=== PATIENT | male | born 1930 | race Caucasian/White ===

== ENCOUNTER 2016-05-16 11:57 | Inpatient (IN) | payer OTHER ==
[~2016-05-16] VITALS: Ht 177.8 cm; Wt 81.6 kg
--- NOTE | ~2016-05-16 | EKG ---
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
--- NOTE | ~2016-05-16 | HC ---
[facility] [place] [address] CONSULTATION Name: CASSIDY CASTRO Room #: 437-P [facility] IN ..#: [id number] Admission: 05/16/16 Attend Phys: Alin Ugalde MD Discharge: Date of : [birth year] Report #: [id number] THIS REPORT FOR: //name// CC: Alin Ugalde DATE OF SERVICE: 05/16/2016 ATTENDING PHYSICIAN: Alin Ugalde MD REASON FOR CONSULTATION: Right-sided L4-L5 zoster. HISTORY OF PRESENT ILLNESS: The patient is an 86-year-old white man who a week ago from today developed right gluteal and thigh pain; subsequently, there were blisters. He visited with Dr. Ugalde. Famvir 500 p.o. t.i.d. prescribed. The patient developed side effects, liquid stool, diarrhea, possibly related to this. He has changed to Valtrex and he experienced hiccups from these. On account of the side effect from the above medications, he is admitted and we started the patient on acyclovir. The patient has ongoing zoster for approximately 6-7 days now. He is not toxic, not distressed, no significant pain. Relates that in the 50s may had another episode of zoster. 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 DRUG ALLERGIES: LEVAQUIN (itching). CURRENT MEDICATIONS: The patient is on treatment with cyanocobalamin 100 mcg p.o. daily, loperamide 2 mg p.o. daily, magnesium chloride 64 mg daily, tamsulosin 0.4 mg daily, metoprolol 50 mg daily, methylprednisolone 40 mg IV daily, gabapentin 100 mg at bedtime, eyedrops, loperamide 2 mg q.i.d. p.r.n., hydrocodone 0.5-1 mg q. 4 hours p.r.n., acyclovir ____ mg b.i.d. SOCIAL HISTORY: See H and P, old records. FAMILY HISTORY: See H and P, old records. REVIEW OF SYSTEMS: As above and see H and P. PHYSICAL EXAMINATION: GENERAL: Well-developed man, not toxic looking, no distress. VITAL SIGNS: Temperature 97.8, pulse 73, respirations 20, BP 143/70. The patient is on room air saturation within range. HEENMT: Head normocephalic and atraumatic. Pupils reactive. Mouth: [place] [address] CONSULTATION Name: CASSIDY CASTRO Room #: [address] [place] [address] IN ..#: [id number] Admission: 05/16/16 Attend Phys: Alin Ugalde MD Discharge: Date of : [birth year] Report #: [id number] thrush. NECK: Supple. No thyromegaly. LUNGS: Clear to auscultation. HEART: S1, S2. No gallop or murmur. ABDOMEN: Soft. No masses or megaly. GENITOURINARY: Deferred. RECTAL: Deferred. EXTREMITIES: Reveal typical lesions of zoster on the right gluteal area, medial aspect right side and leg with ____ blisters on the right leg. NEUROLOGIC: Grossly within normal limits. LABORATORY DATA: Revealed the following abnormals: Potassium 3.4 mEq/L, BUN 28 mg/dL, creatinine 1.6 ng/dL on the date of admission, albumin 3.3 g/dL, protime 26.1, INR 2.5, hemoglobin 11.6 g/dL and platelets 146,000. ASSESSMENT: 1. Right-sided L5-S1 zoster. 2. Acute kidney injury, improved. 3. 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 4. Atrial fibrillation, on chronic anticoagulation. SUGGESTIONS: Recommend intravenous fluids, steroid supplementation with stress dose and acyclovir 10 mg/kg IV every 12 hours should be appropriate for patient's degree of renal insufficiency. Dr. Ugalde, thank you for requesting my suggestions in the care of your patient and I will continue to follow him along with you. <ELECTRONICALLY SIGNED> By: Jared Garces MD 05/18/16 1104 [id number] Jared Garces MD /nt
--- NOTE | ~2016-05-16 | H ---
[facility] [place] [address] HISTORY AND PHYSICAL Name: CASSIDY CASTRO Room #: 437-P [facility] IN .R.#: [id number] Admission: 05/16/16 Attend Phys: Alin Ugalde MD Discharge: Date of : [birth year] Report #: [id number] THIS REPORT FOR: //name// CC: Alin Ugalde DATE OF SERVICE: 05/16/2016 CHIEF COMPLAINT: Hiccups, diarrhea, bad stomach combined with shingles medication. HISTORY OF PRESENT ILLNESS: The patient came to my office on 05/08/2016 with acute leg pain with some features of an early preeruptive herpetic zoster. He was given famciclovir 500 mg 3 times a day. He returned to the office 4 days later with a full scale eruption in the posterior buttock area and down the medial portion of his right leg in the L5-S1 distribution. He also reported liquid stools from taking the famciclovir, and he was only able to tolerate 1 of the 500 mg tablet a day at that time. He was switched to valacyclovir and initially did well, but then came back to the office yesterday complaining of some hiccups with the valacyclovir. His shingles was progressing. This morning he called with the intractable hiccups anytime he would take the valacyclovir and was not doing well otherwise, so admission was arranged. He had been taking prednisone as well. He did not need to take hydrocodone because his pain had become much less severe. He had been taking 200 mg of gabapentin at bedtime without difficulty. The patient was hospitalized for 3 days 04/28/2014 because of nausea, vomiting, and diarrhea. Acute renal failure and low blood pressure in the office qualified for shock at that time, and his gastroesophageal reflux symptoms improved to some degree with the administration of sucralfate. He had a past history of hiatal hernia and peptic ulcer disease as well as proton pump inhibitors being the cause of an episode of severe hypokalemia and hypomagnesemia for which he was hospitalized several weeks in March 2014 at an outside hospital. He was followed at the [facility] for paroxysmal atrial fibrillation by Dr. Prabhu Rabago. He also has hyperlipidemia, dyslipidemia, and coronary artery disease. He is maintained on warfarin under Dr. Rabago' direction. He is followed by Dr. Jaden Lopez for shortness of breath. A sleep study was performed on 12/08/2015 with the finding of central sleep apnea, obstructive hypopneas, and nocturnal hypoxemia. CPAP/BiPAP, [place] [id number] HISTORY AND PHYSICAL Name: CASSIDY CASTRO Room #: 437-P [facility] IN ..#: [id number] Admission: 05/16/16 Attend Phys: Alin Ugalde MD Discharge: Date of : [birth year] Report #: [id number] Radiation enteritis from prostate cancer treatment started 7 years ago that is ordinarily well controlled with 1 Imodium tablet taken every morning. Hypertension, history of gout, hiatal hernia, peptic ulcer disease, chronic kidney disease stage 3. ALLERGIES: PROTON PUMP INHIBITORS, LEVOFLOXACIN CAUSED ITCHING. CURRENT MEDICATIONS: Loperamide 2 mg 1 in the morning, baby aspirin 1 daily, furosemide 20 mg daily for swelling, metoprolol succinate 50 mg 1 twice daily for his paroxysmal atrial fibrillation, nitroglycerin tablets have not been needed, rosuvastatin 10 mg once daily was recently changed to atorvastatin 40 mg daily, Slow-Mag 14 mg once daily, he is not taking tamsulosin, warfarin 1 mg and 2 mg tablets, he is taking 19 mg per week under the direction of Dr. Rabago. He takes an Gissell-Newfolden tablet as needed for heartburn at night, B12 1000 mcg daily, Refresh eye drops twice daily in each eye, oxygen 2 liters at night and cardio tablets, multiple vitamin during the day. SOCIAL HISTORY: He does drink apparently according to his family. He is a nonsmoker. His of many years last year and he is home alone. He has a family that do not live too far away from here. He lives independently in an [facility]. REVIEW OF SYSTEMS: Negative except for the belching experienced over the last 48 hours related to valacyclovir, extremely loose stools experienced last week in response to famciclovir and the pain from his right upper buttocks down his medial right leg from acute zoster. He also has suffered balanitis in the last week and a half that has responded to topical preparations. An appointment was made last week for him to be seen by Dr. Ruy Duval on Sunday, May 17, for consideration for an epidural injection to definitively treat his acute zoster. His last dose of warfarin was to have been on May 11 in order to abnormal clotting studies prior to an epidural on May 17. He insists that he did stop taking is warfarin like he was instructed to do. However, his INR today in the hospital is therapeutic at 2.5, as if he never stopped taking the warfarin. PHYSICAL EXAMINATION: GENERAL: Shows an 86-year-old man who was mildly ill. HEENT: Oropharynx is only minimal dry. NECK: Negative. LUNGS: Clear. CARDIOVASCULAR: Heart tones are slightly rapid and irregularly irregular. There is a soft systolic murmur present. ABDOMEN: Soft, nontender, without hepatosplenomegaly or masses. EXTREMITIES: There are dried, crusted lesions on the right buttock area, as well as active fluid-filled vesicles in the distal medial right leg from the [facility] [address] [place] [address] HISTORY AND PHYSICAL Name: CASSIDY CASTRO Room #: 437-P [facility] IN .R.#: [id number] Admission: 05/16/16 Attend Phys: Alin Ugalde MD Discharge: Date of : [birth year] Report #: [id number] dermatomal distribution of this acute shingles episode. There are no focal neurological deficits. Once he arrived on the telemetry unit, he did develop rapid atrial fibrillation at 135. He was given his dose of Toprol XL early to treat this. ASSESSMENT: 1. Acute herpes zoster L4, L5, S1 distribution on the right. 2. He was intolerant initially of famciclovir and now intolerant of valacyclovir. 3. He is mildly dehydrated from diarrhea and belching and not being able to eat or drink well. 4. He does have an acute herpetic neuropathic pain. 5. Paroxysmal atrial fibrillation -- previous facsimile machine operator note that he is in normal sinus rhythm most of the time, but the stress of his illness has escaped to an atrial fibrillation rhythm. 6. Measurements show adequate anticoagulation, although the patient himself says that he has not had warfarin since 05/11/2016. This is possible; however, he would have to have a very little exogenous vitamin K for his body to produce blood clotting factors to keep his INR therapeutic this long without having taken any medication. 7. Proton pump inhibitors caused tremendous diarrhea and loss of electrolytes at an outside hospital a year ago. 8. Other medical problems as mentioned in history and physical. PLAN: He has been giving his home medications, except his warfarin is being held. Pro time will be repeated. Intravenous fluids with potassium will be given. He has been seen in infectious disease consultation by Dr. Jared Garces, and intravenous acyclovir in the appropriate dose has been started for his shingles. Corticosteroid therapy will be continued. Gabapentin at bedtime. He is not "entirely ready to go," but he does not want prolonged resuscitation efforts, so he chose a "[id number]" level of resuscitation. Since he has liquid-filled vesicles on his distal right leg, contact isolation is appropriate at this time. By: [id number] Alin Ugalde MD /nt
[~2016-05-16 11:57] MED LIST: ADULT LOW DOSE81 MG PO; CALCIUM CITRAT1 EA14 PO; CARAFATE 11 GM/10 M1 PO; COUMADIN 1MG TAB1 M1 PO; COUMADIN 2 MG TA2 M1 PO; CRESTOR10 MG PO; FLOMAX0.4 MG PO; LOPERAMIDE 2 MG2 M1 PO; NITROGLYCERIN0.4 MG SUBLING; NORVASC10 MG PO; POTASSIUM 25 M25 MEQ PO; SLOW-MAG64 M1 PO; TOPROL XL100 MG PO; VITAMIN B-1100 M1 PO; VITAMIN B-12500 MCG SUBLING; VITAMIN D 5050000 I1 PO
[2016-05-16 14:10] LABS: HEMOGLOBIN 11.6 gm/dL (14.0-18.0); MCH 31.3 pg (26.0-34.0); MCV 94.8 fL (80.0-100.0); PLATELET COUNT 146 thou/uL (150-400); RBC 3.69 mil/uL (4.50-6.00); WBC 7.7 thou/uL (4.0-11.0)
[2016-05-16] MEDS ORDERED: SLOW-MAG64 M1 PO (14:10)
[2016-05-16 14:11] LABS: MANUAL DIFF YES
[2016-05-16] MEDS ORDERED: ALKA-SELTZER H1 EACH PO (14:17)
[2016-05-16] MEDS ORDERED: REFRESH CLASSI1 EACH OP (14:18)
[2016-05-16] MEDS ORDERED: LASIX 20 MG TAB20 MG PO (14:18)
[2016-05-16] MEDS ORDERED: CENTRUM SILVER1 EAC4 PO (14:18)
[2016-05-16 14:21] LABS: ALBUMIN 3.3 g/dL (3.4-5.0); CALCIUM 8.5 mg/dL (8.5-10.1); CREATININE 1.6 mg/dL (0.6-1.3); POTASSIUM 3.4 mmol/L (3.5-5.1); TOTAL BILIRUBIN 0.7 mg/dL (<0.1-1.0)
[2016-05-16 14:26] LABS: ABSOLUTE NEUTROPHILS 5.7 thou/uL (1.4-8.2); ANISOCYTOSIS SLIGHT; NUCLEATED RBCS 1 /100WBC; PLATELET ESTIMATE SLIGHTLY DECREASED; TOTAL CELL COUNT 100
[2016-05-16 16:08] LABS: INR 2.5; PROTIME 26.1 Seconds (9.3-11.4)
[2016-05-17 06:49] LABS: HEMATOCRIT 32.3 % (42.0-52.0); HEMOGLOBIN 10.8 gm/dL (14.0-18.0); MCH 31.7 pg (26.0-34.0); MCHC 33.4 g/dL (28.0-37.0); MCV 94.9 fL (80.0-100.0); PLATELET COUNT 144 thou/uL (150-400); RDW 16.1 % (10.5-14.5); WBC 7.9 thou/uL (4.0-11.0)
[2016-05-17 06:52] LABS: MANUAL DIFF YES
[2016-05-17 07:08] LABS: ALBUMIN 2.8 g/dL (3.4-5.0); CALCIUM 8.2 mg/dL (8.5-10.1); CREATININE 1.3 mg/dL (0.6-1.3); MAGNESIUM 1.8 mg/dL (1.8-2.4); TOTAL BILIRUBIN 0.9 mg/dL (<0.1-1.0); TOTAL PROTEIN 6.2 g/dL (6.4-8.2)
[2016-05-17 07:23] LABS: ANISOCYTOSIS 1+; TOTAL CELL COUNT 100
[2016-05-17 08:58] LABS: INR 1.7; PROTIME 18.1 Seconds (9.3-11.4)
[2016-05-18 06:19] LABS: CALCIUM 8.5 mg/dL (8.5-10.1); CREATININE 1.4 mg/dL (0.6-1.3); POTASSIUM 4.6 mmol/L (3.5-5.1)
[2016-05-18 08:52] LABS: INR 1.5
[2016-05-19] MEDS ORDERED: PREDNISONE 10 M10 MG PO (12:51)
[2016-05-19] MEDS ORDERED: GABAPENTIN 100100 MG PO (12:51)
== END 2016-05-19 13:58 | disposition home or self-care (01) | DRG 595 ==
LOC: 4S 11:57
PROVIDERS: Internal Medicine
DX: B02.9 Zoster without complications (principal); G92 Toxic encephalopathy; N17.9 Acute kidney failure, unspecified; I48.0 Paroxysmal atrial fibrillation; E78.5 Hyperlipidemia, unspecified; G47.33 Obstructive sleep apnea (adult) (pediatric); I10 Essential (primary) hypertension; M10.9 Gout, unspecified; I25.10 Atherosclerotic heart disease of native coronary artery without angina pectoris; Z60.2 Problems related to living alone; E86.9 Volume depletion, unspecified; Z79.82 Long term (current) use of aspirin; Z79.01 Long term (current) use of anticoagulants; Z85.46 Personal history of malignant neoplasm of prostate; Z87.11 Personal history of peptic ulcer disease; Z88.1 Allergy status to other antibiotic agents; Z79.899 Other long term (current) drug therapy
CPT/HCPCS: 10100

== ENCOUNTER → 2016-06-21 | Outpatient (CLI) | payer OTHER ==
[~2016-06-21] VITALS: Ht 180.3 cm; Wt 78.5 kg
[~2016-06-21] MED LIST changes: +ALKA-SELTZER H1 EACH PO; +ALKA-SELTZER O1 EACH PO; +CENTRUM SILVER1 EAC4 PO; +ELIQUIS2.5 MG PO; +GABAPENTIN 100100 MG PO; +HYDROCODONE-AP1 EAC6 PO; +LASIX 20 MG TAB20 MG PO; +LIDODERM 5%1 PATC1 TRANSDERM; +LIPITOR 20 MG T20 M1 PO; +NEURONTIN 300300 M1 PO; +NORTRIPTYLINE H10 M1 PO; +PACERONE 200 M200 M1 PO; +PREDNISONE 10 M10 MG PO; +REFRESH CLASSI1 EACH OP; +REFRESH TEARS15 ML OP; +TRAMADOL 50 MG50 MG PO
--- NOTE | ~2016-06-21 | HPC ---
[facility] [place] [address] PAIN MANAGEMENT CONSULTATION Name: CASSIDY CASTRO Room #: REG [facility].#: [id number] Admission: 06/21/16 Attend Phys: Julio Cesar Concepcion MD Discharge: Date of : [birth year] Report #: [id number] THIS REPORT FOR: //name// CC: Julio Cesar Rabago MD DATE OF REGISTRATION: 06/21/2016. CHIEF COMPLAINT: Postherpetic neuralgia. HISTORY OF PRESENT ILLNESS: The patient is a wonderful 86-year-old gentleman who I have known for many years. I helped cared for his Sugey for over a decade before she . Beginning about 6 weeks ago, he developed classic onset rash of shingles. It involved the L2, L3, L4 dermatoma of the right hip, thigh and lower leg. The outbreak has been more painful, the lesions have healed and he has developed postherpetic neuralgia. Pain intensity varies between the score of 2-5/10 in the pain cycles. He will have moments where he is fine and then for uncertain reasons, he will develop acute sharp stabbing pain radiating through the leg that is very uncomfortable and intense. He has been given gabapentin, which he poorly tolerates because of side effects. He has been using limited tramadol, also causing side effects and he also has hydrocodone which he takes at a dose of 2.5 mg only about twice a day. He has no problem with side effect as he has developed chronic diarrhea and opioid related constipation does not seem to be an issue. I spoke with his physician, Dr. Wilson Rabago with [facility]. His atrial fib which required cardioversion and he is on an anticoagulant. Wilson would prefer that he remain on his Eliquis for the next several weeks and is not a candidate to go off for an epidural injection. MEDICATIONS: Complete medication list is amiodarone, tramadol, hydrocodone, aspirin, Eliquis, Lipitor, Slow-Mag, gabapentin, Lasix, Flomax, aspirin and nitroglycerin. ALLERGIES: LEVAQUIN. PAST MEDICAL HISTORY: Remarkable for atrial fibrillation and cardiac stenting procedure for coronary artery disease. He has been treated for hypertension and palpitations. REVIEW OF SYSTEMS: Positive for peptic ulcer, weight loss, decreased appetite, nocturia, incontinence, dribbling and chronic diarrhea. SOCIAL HISTORY: He is . Denies use of tobacco or alcohol. [place] [address] PAIN MANAGEMENT CONSULTATION Name: CASSIDY CASTRO [id number] Admission: 06/21/16 Attend Phys: Julio Cesar Concepcion MD Discharge: Date of : [birth year] Report #: [id number] [facility]. He is independent with activities of daily living. He does not drive. PHYSICAL EXAMINATION: GENERAL: He is a pleasant 86-year-old. VITAL SIGNS: Blood pressure 156/57, heart rate 57, respirations 14, his BMI is 24. CHEST: Clear. CARDIAC: Rhythm was regular appear to be in atrial fibrillation. ABDOMEN: Soft. Bowel signs are present. SKIN: Examination of his back and leg reveal well-healed lesions with a couple of spots that are still scabbed over, but the majority healed in the distributions of L2-L4 on the right lower extremity with light touch allodynic scarring. IMPRESSION: Postherpetic neuralgia. RECOMMENDATIONS: 1. Good success has been noted in our practice and in the literature with use of small amounts of tricyclic antidepressants. Although these medications have anticholinergic side effects and it may actually increase a QT interval while he is on amiodarone, this seems to be a dose related phenomena. At very small doses such as 10 mg at bedtime, I been able to achieve some benefits for this difficult neuralgic pain and avoided significant side effects. I am going to initiate that today. 2. Lidoderm patches were appropriate at this time. 3. Continue with one half tablet of hydrocodone up to every 6 hours as needed. Side effects seem to be well tolerated. 4. Discontinue gabapentin as it does not seem to be effective and is causing dizziness. 5. Follow up in the pain clinic in another month or so. Medication prescriptions were provided. Contact is made with Dr. Rabago to discuss the medications initiated today. By: [id number] Julio Cesar Concepcion MD /nt
[2016-06-21 15:08] VITALS: BP 156/57
== END | disposition home or self-care (01) ==
LOC: PAIN 07:03
DX: B02.29 Other postherpetic nervous system involvement (principal); I10 Essential (primary) hypertension; I48.91 Unspecified atrial fibrillation; I25.10 Atherosclerotic heart disease of native coronary artery without angina pectoris; Z98.890 Other specified postprocedural states

== ENCOUNTER 2016-06-27 12:33 | Inpatient (IN) | payer OTHER ==
[~2016-06-27] VITALS: Ht 180.3 cm; Wt 73.5 kg
--- NOTE | ~2016-06-27 | H ---
[facility] [place] [address] HISTORY AND PHYSICAL Name: CASSIDY CASTRO Room #: 443-P [facility] IN ..#: [id number] Admission: 06/27/16 Attend Phys: Alin Ugalde MD Discharge: 06/29/16 Date of : [birth year] Report #: [id number] THIS REPORT FOR: //name// CC: Alin Ugalde DATE OF SERVICE: 06/27/2016 CHIEF COMPLAINT: Black, tarry stools; weakness; unstable gait and chills. HISTORY OF PRESENT ILLNESS: The patient was doing well until about May 08, when he had developed pain in his back and right leg that developed into acute right L5-S1 shingles . He was unable to tolerate adequate doses of the famciclovir/valacyclovir agents. He was also unable to tolerate gabapentin for his pain. He was hospitalized for several days for intravenous administration of acyclovir. He has experienced fairly constant, fairly severe pain since then. He did develop rapid atrial fibrillation a month ago and on 06/19/2016, he had a direct cardioversion at the [facility]. He has been in normal sinus rhythm since that time and states that his shortness of breath and dyspnea on exertion have become tremendously better. Nevertheless, he still has almost constant pain in the right L5-S1 distribution. Amiodarone to maintain a sinus rhythm interacted erratically with his warfarin, so his logistics supply officer switched him to Eliquis 2.5 mg twice daily. On this backdrop yesterday, 06/26/2016, he developed melena described as dark, tarry stools. He reports having approximately 6 of those stools, with 4 being yesterday and 2 this morning before he came to the office. He began simply feeling worse yesterday, having more pain in his leg and less energy. He also has developed a feverish feeling at times and chills. The pain has made it hard for him to walk well. He is vague about other symptoms, and in general doen't feel "well at all!" His logistics supply officer told him to come to my office this morning. PAST MEDICAL HISTORY: Significant for his persistent severe postherpetic neuralgia. Rapid atrial fibrillation that responded to cardioversion on 06/19/2016. Hyperlipidemia. Urine frequency. Obstructive sleep apnea, treated with a CPAP. Hiatal hernia and peptic ulcer disease. Proton pump inhibitors caused severe hypokalemia and hypomagnesemia, requiring hospital stay in March 2014 at [facility]. They have been discontinued. Hyperlipidemia, dyslipidemia and coronary artery [place] [address] HISTORY AND PHYSICAL Name: CASSIDY CASTRO Room #: 443-P [facility] IN [facility].#: [id number] Admission: 06/27/16 Attend Phys: Alin Ugalde MD Discharge: 06/29/16 Date of : [birth year] Report #: [id number] paroxysmal atrial fibrillation are followed by Dr. Prabhu Rabago of the [facility]iology [facility]. Radiation proctitis from radiation treatment to prostate cancer. Hypertension. History of gout. Chronic kidney disease, stage 3. ALLERGIES: PROTON PUMP INHIBITORS cause hypokalemia and hypomagnesemia, LEVOFLOXACIN caused itching. CURRENT MEDICATIONS Nortriptyline 10mg bedtime from Dr. Concepcion. Loperamide as needed for loose stools, one baby aspirin daily, furosemide 20 mg daily for swelling, amiodarone 200 mg once daily, atorvastatin 40 mg daily, Slow-Mag 14 mg once daily, Gissell-Thornton tablets as needed for heartburn at night. B12 at 1000 mcg daily. Refresh eyedrops twice daily. Oxygen 2 liters at night. Eliquis 2.5mg twice a day. SOCIAL HISTORY: He has not been drinking recently because of this pain. He is a nonsmoker. His of many years in 2014 and he is living at his independet living apartment at [facility] by himself now. He has children that do not live excessively far away. PHYSICAL EXAMINATION: VITAL SIGNS: His blood pressure supine is 171/82 with a pulse of 78; sitting and dangling, his blood pressure was 151/81 with a pulse of 79 and standing, his blood pressure dropped to 155/82 with a pulse of 82. He was unable to stand there for very long without assistance. HEENT: Shows oral mucosa to be dry. LUNGS: Clear. HEART: Heart tones are normal, with a soft systolic ejection murmur that is also regular. ABDOMEN: Soft with normal bowel sounds. There is no organomegaly or masses. Noted over the suprapubic area, is very mild tenderness present. EXTREMITIES: There is slight pedal edema present. NEUROLOGIC: There are no focal neurological deficits. Dark stool was obtained on the gloved examiner's finger and was moderately heme positive. During the examination, there were several episodes of shaking chills. His temperature was 98.5 at the beginning of the examination. He still has a dry clustered lesions in his right lower lumbar spine area as well as the right groin and anterior thigh area. ASSESSMENT: 1. Persistent postherpetic neuralgia that is disabling. [facility] [address] [place] [address] HISTORY AND PHYSICAL Name: CASSIDY CASTRO Room #: 443-P [facility] IN ..#: [id number] Admission: 06/27/16 Attend Phys: Alin Ugalde MD Discharge: 06/29/16 Date of : [birth year] Report #: [id number] 2. Very slow-resolving shingles of the right L5-S1 distribution. 3. Dehydrated. 4. Chills. 5. Weakness. 6. Normal sinus rhythm remains intact after cardioversion from 06/19/2016. 7. Hypertension. 8. Nocturnal hypoxemia. 9. Lower anterior pelvic wall discomfort of unclear etiology. 10 Orthostasis. 11. Toxic encephalopathy. PLAN: The patient is started on Lyrica to reduce the post-herpetice neuralgia pain. Intravenous fluids are being given because he is clinically dehydrated with this orthostatic blood pressure drop. He reports that a lidocaine patch applied to the painful nerve distribution of his right leg simply makes his pain hurt worse. He is getting intravenous fluids. He has already been enrolled at a daycare facility. Intravenous fluids will replete his volume status. CT scan of the abdomen and pelvic does show no abnormalities and there is no suggestion of acute diverticulitis. In addition, Lyrica 25 mg at bedtime is being started at its lowest dose. He needs to be cautious with getting up and going to the bathroom in the middle of the night, especially while starting this medication. He remains on Eliquis 2.5 mg twice daily. Blood cultures and urine cultures are obtained because of the chills he exhibited during his exam. <ELECTRONICALLY SIGNED> By: Alin Ugalde MD 07/02/16 0957 [id number] MD shahida Hutchinson
--- NOTE | ~2016-06-27 | EKG ---
[address] [address] ELECTROCARDIOGRAM REPORT Name: CASSIDY CASTRO Room #: 443-P ADM IN M.R.#: [id number] Admission: 06/27/16 Attend Phys: Alin Ugalde MD Discharge: Date of : [birth year] Report #: [id number] THIS REPORT FOR: //name// [facility] Test Date: 2016-06-27 Test Time: 13:27:56 Pat Name: CASSIDY CASTRO Department: Room: 443 P Gender: M Director [employer]: [employer] : 1930 Requested By: Alin Ugalde Order Number: [id number] MD: Talon Martini Measurements Intervals [place] Rate: 74 P: 27 RI: 215 QRS: -21 QRSD: 97 T: 73 QT: 484 QTc: 537 Interpretive Statements Sinus rhythm Borderline prolonged RI interval Nonspecific ST segment abnormality Prolonged QT interval Baseline wander in lead(s) V3 Compared to ECG 05/19/2016 12:58:26 sinus rhythm has replaced atrial fibrillation Electronically Signed On 06-28-2016 8:30:52 CDT by Talon Martini [email or web address] <ELECTRONICALLY SIGNED> By: Talon Martini MD, [facility] 06/28/16 0830 1327 1327 Talon Martini MD, [facility] /EPI
--- NOTE | ~2016-06-27 | D ---
[facility] [place] [address] DISCHARGE SUMMARY Name: CASSIDY CASTRO Room #: 443-P [facility] IN ..#: [id number] Admission: 06/27/16 Attend Phys: Alin Ugalde MD Discharge: 06/29/16 Date of : [birth year] Report #: [id number] THIS REPORT FOR: //name// CC: Alin Rabago MD DATE OF SERVICE: 06/29/2016 DISCHARGE DIAGNOSES: 1. Severe acute postherpetic neuralgia pain in the right L5-S1 distribution. 2. Toxic encephalopathy. 3. Acute renal failure, resolved. 4. Chronic kidney disease stage III - stable. 5. Severe malnutrition with an albumin of 2.7 after being rehydrated overnight. 6. History of melena, but no stools were collected while he was in the hospital and his blood count remained stable. 6a. 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 7. Atrial fibrillation that actually remains in normal sinus rhythm after DC cardioversion several weeks earlier. Brief telemetry strip suggested emergence of atrial fibrillation, but these rapidly returned to normal. 8. Hemorrhagic cyst, right kidney, asymptomatic. 9. IDRIS, uses CPAP every night. SUMMARY OF HISTORY AND PHYSICAL: The patient was admitted on 05/16/2016 and discharged on 05/19/2016 for severe acute L5-S1 right-sided shingles pain and inability to tolerate the oral antiviral medications. He was given intravenous acyclovir and other medications and responded well. During that hospital stay, he developed rapid atrial fibrillation and his rate was controlled. He developed breathlessness. He underwent a direct cardioversion 06/19/[address] Prabhu Rabago at the [facility]. With rastafari of sinus rhythm, his breathlessness resolved and he remains free of breathlessness. However, over the last several days, the postherpetic neuralgia pain in his right leg and the right lower back seems to have gone from bad to worse. Also, he reported 6 melenotic stools, 4 today before admission and 2 the morning of admission. Because of his profound malaise, pain and melenic stools, admission was indicated. SUMMARY OF HOSPITAL COURSE: He was admitted and started on hydrocodone. Pain relief was not impressive, but 5/325 of oxycodone did provide effective pain relief and he was kept on 1 dose every 4 hours as needed the rest of his hospital stay with relatively good pain control. He has wooziness as a side effect from gabapentin prompting the trial of Lyrica on this hospital stay. As dose was titrated upwards in 100 mg, did seem to [facility] [address] [place] [address] DISCHARGE SUMMARY Name: CASSIDY CASTRO GILMAN Room #: 443-P [facility] IN M.R.#: [id number] Admission: 06/27/16 Attend Phys: Alin Ugalde MD Discharge: 06/29/16 Date of : [birth year] Report #: [id number] provide some ooziness similar to gabapentin, but when the dose was reduced to 75 mg, the side effects disappeared and pain control improved. There was one brief episode that appeared to be return of atrial fibrillation on the monitor and for this reason, his in amiodarone dose was doubled after being discussed with his fixture fabricator repairer, Dr. Prabhu Rabago. He was confused on admission and dehydrated with an elevated creatinine. As his pain was controlled and his fluids replaced with IV fluids and his creatinine/acute renal failure resolved, his mentation improved also, qualifying for the diagnosis of toxic encephalopathy. On admission, his creatinine was 1.9 and at discharge, it returned to baseline of 1.4, fulfilling criteria for acute renal failure. His albumin was 2.7 after being rehydrated, qualifying for severe malnutrition. His chills resolved without specific treatment. WBCs were 6.9 thousand, hemoglobin was 12.7 on admission, and hemoglobin 11.7 at discharge. Sed rate was 40. Urinalysis showed a trace of blood and was otherwise negative. Urine culture showed less than 10,000 CFU per mL, negative rods and was small enough to not indicate an infection. Blood cultures were negative. Because of lower abdominal discomfort, CT scan of the abdomen and pelvis showed the lung bases to be clear except for right lung base calcified granuloma. There was low density cystic mass in the inferior medial left kidney and another mass suggestive of hemorrhagic cyst in the right kidney. Mild scoliosis was noted. Chest x-ray was negative for acute cardiopulmonary processes. PLAN: He is returning to his own independent living apartment at [facility]. Oxycodone 5/325 one 4 times a day as needed for pain along with Lyrica 75 mg 2 or 3 times a day for neuritic right leg pain. Nortriptyline 10mg bedtime. Amiodarone dose is increased to taking 2 of the 200 mg oral dose daily until he sees Dr. Rabago in his office in 1-2 weeks. Tums for heartburn. NTG prn. Aspirin 81mg. Tamsulosin one daily. Slow Mag 64mg one daily. Atorvastatin 20mg daily. Eliquis 2.5mg twice a day. Gissell-Delta prn GERD. Artificial tears. Stop the furosemide 20mg daily for now. The patient is to see Dr. Rabago in 1-2 weeks and discuss what to do about the amiodarone dosing. He is to see me in my office in a couple of weeks for [place] [address] [place] [address] DISCHARGE SUMMARY Name: CASSIDY CASTRO GILMAN Room #: 443-P [facility] IN M.R.#: [id number] Admission: 06/27/16 Attend Phys: Alin Ugalde MD Discharge: 06/29/16 Date of : [birth year] Report #: [id number] further followup and refill of his medications. He is to follow up with Corn[facility] and Dr. Concepcion [facility]. <ELECTRONICALLY SIGNED> By: Alin Ugalde MD 07/02/16 0958 2308 0140 Alin Ugalde MD /nt
--- NOTE | ~2016-06-27 | EKG ---
[address] [address] ELECTROCARDIOGRAM REPORT Name: CASSIDY CASTRO Room #: 443-P ADM IN M.R.#: [id number] Admission: 06/27/16 Attend Phys: Alni Ugalde MD Discharge: Date of : [birth year] Report #: [id number] THIS REPORT FOR: //name// [facility] Test Date: 2016-06-28 Test Time: 07:42:59 Pat Name: CASSIDY CASTRO Department: Room: 443 P Gender: M Asset Recovery Specialist: Belinda MOY : 1930 Requested By: Alin Ugalde Order Number: [id number] MD: Talon Martini Measurements Intervals [place] Rate: 96 P: 253 AR: 204 QRS: -12 QRSD: 97 T: 134 QT: 322 QTc: 407 Interpretive Statements Atrial fibrillation Nonspecific ST and T wave abnormality Compared to ECG 05/19/2016 12:58:26 atrial fibrillation has replaced sinus rhythm Electronically Signed On 06-29-2016 8:12:39 CDT by Talon Martini [email or web address] <ELECTRONICALLY SIGNED> By: Talon Martini MD, [facility] 06/29/16 0812 1 Talon Martini MD, [facility] /EPI
[2016-06-27 13:00] VITALS: BP 179/95
[2016-06-27 13:30] VITALS: BP 179/95
[2016-06-27 14:14] LABS: HEMATOCRIT 38.6 % (42.0-52.0); HEMOGLOBIN 12.7 gm/dL (14.0-18.0); MANUAL DIFF YES; MCH 30.2 pg (26.0-34.0); MCHC 32.9 g/dL (28.0-37.0); MCV 91.7 fL (80.0-100.0); PLATELET COUNT 176 thou/uL (150-400); RBC 4.21 mil/uL (4.50-6.00); RDW 17.6 % (10.5-14.5); WBC 6.9 thou/uL (4.0-11.0)
[2016-06-27 14:30] LABS: ALBUMIN 3.4 g/dL (3.4-5.0); CALCIUM 8.4 mg/dL (8.5-10.1); CREATININE 1.9 mg/dL (0.7-1.3); POTASSIUM 4.1 mmol/L (3.5-5.1); TOTAL PROTEIN 7.2 g/dL (6.4-8.2)
[2016-06-27 14:52] LABS: ABSOLUTE NEUTROPHILS 5.3 thou/uL (1.4-8.2); TOTAL CELL COUNT 100
[2016-06-27 14:53] LABS: ANISOCYTOSIS 2+
[2016-06-27 16:00] VITALS: BP 144/81
[2016-06-27 19:21] LABS: URINE BILIRUBIN NEGATIVE (Negative); URINE BLOOD TRACE (Negative); URINE COLOR YELLOW; URINE GLUCOSE-RANDOM* NEGATIVE (Negative); URINE KETONES NEGATIVE (Negative); URINE NITRITE NEGATIVE (Negative); URINE PROTEIN (DIPSTICK) 1+ (Negative); URINE UROBILINOGEN 0.2 E.U./dl (0.2-1.0)
[2016-06-27 19:25] LABS: BACTERIA None Seen /HPF (None Seen); CASTS None Seen /LPF (None Seen); CRYSTALS None Seen /LPF (None Seen); SQUAMOUS None Seen /LPF (0-3); URINE RBC 0-2 Rare /HPF (0-2); URINE WBC None Seen /HPF (0-5)
[2016-06-27 19:30] VITALS: BP 146/81
[2016-06-28 03:45] VITALS: BP 124/79
[2016-06-28 05:42] LABS: HEMATOCRIT 36.3 % (42.0-52.0); HEMOGLOBIN 11.8 gm/dL (14.0-18.0); MCH 30.1 pg (26.0-34.0); MCHC 32.4 g/dL (28.0-37.0); MCV 92.8 fL (80.0-100.0); PLATELET COUNT 150 thou/uL (150-400); RBC 3.91 mil/uL (4.50-6.00); WBC 6.1 thou/uL (4.0-11.0)
[2016-06-28 05:45] LABS: MANUAL DIFF YES
[2016-06-28 05:57] LABS: ALBUMIN 2.7 g/dL (3.4-5.0); CALCIUM 8.4 mg/dL (8.5-10.1); CREATININE 1.5 mg/dL (0.7-1.3); POTASSIUM 3.9 mmol/L (3.5-5.1); TOTAL BILIRUBIN 0.9 mg/dL (<0.1-1.0); TOTAL PROTEIN 5.9 g/dL (6.4-8.2)
[2016-06-28 07:12] LABS: ABSOLUTE NEUTROPHILS 4.7 thou/uL (1.4-8.2); ANISOCYTOSIS 1+; TOTAL CELL COUNT 100
[2016-06-28 08:29] VITALS: BP 140/74
[2016-06-28 12:50] VITALS: BP 93/66
[2016-06-28 15:13] VITALS: BP 140/74
[2016-06-28 16:28] VITALS: BP 140/74
[2016-06-28 19:32] VITALS: BP 133/73
[2016-06-29 05:13] VITALS: BP 138/96
[2016-06-29 05:58] LABS: HEMATOCRIT 36.7 % (42.0-52.0); HEMOGLOBIN 11.7 gm/dL (14.0-18.0); MCHC 31.9 g/dL (28.0-37.0); MCV 94.1 fL (80.0-100.0); RBC 3.9 mil/uL (4.50-6.00); RDW 17.4 % (10.5-14.5); WBC 5.9 thou/uL (4.0-11.0)
[2016-06-29 06:12] LABS: CREATININE 1.4 mg/dL (0.7-1.3); POTASSIUM 3.9 mmol/L (3.5-5.1)
[2016-06-29 07:28] VITALS: BP 145/89
[2016-06-29] MEDS ORDERED: PACERONE 200 M200 M1 PO (08:58)
[2016-06-29] MEDS ORDERED: PERCOCET 5-3251 EACH PO (08:58)
[2016-06-29] MEDS ORDERED: LYRICA 75 MG CA75 MG PO (08:58)
[2016-06-29] MEDS ORDERED: COLACE100 MG PO (08:58)
[2016-06-29] MEDS ORDERED: TUMS CHEWA500 MG/11 PO (08:58)
[2016-06-29 09:16] VITALS: BP 140/74
== END 2016-06-29 10:21 | disposition home health service (06) | DRG 73 ==
LOC: 4S 12:33
PROVIDERS: Internal Medicine
DX: B02.29 Other postherpetic nervous system involvement (principal); E43 Unspecified severe protein-calorie malnutrition; G92 Toxic encephalopathy; N17.9 Acute kidney failure, unspecified; N18.3 Chronic kidney disease, stage 3 (moderate); E78.5 Hyperlipidemia, unspecified; I25.10 Atherosclerotic heart disease of native coronary artery without angina pectoris; I48.0 Paroxysmal atrial fibrillation; I12.9 Hypertensive chronic kidney disease with stage 1 through stage 4 chronic kidney disease, or unspecified chronic kidney disease; I95.1 Orthostatic hypotension; R09.02 Hypoxemia; E86.0 Dehydration; R53.81 Other malaise; G47.33 Obstructive sleep apnea (adult) (pediatric); Z88.1 Allergy status to other antibiotic agents; Z85.46 Personal history of malignant neoplasm of prostate; Z68.22 Body mass index [BMI] 22.0-22.9, adult
CPT/HCPCS: 10100

== ENCOUNTER 2017-03-28 14:52 | Inpatient (IN) | payer OTHER ==
[~2017-03-28] VITALS: Ht 180.3 cm; Wt 79.2 kg
--- NOTE | ~2017-03-28 | H ---
[facility] [place] [address] HISTORY AND PHYSICAL Name: CASSIDY CASTRO Room #: 204-P [facility] IN ..#: [id number] Admission: 03/28/17 Attend Phys: Alin Ugalde MD Discharge: 04/03/17 Date of : [birth year] Report #: [id number] THIS REPORT FOR: //name// CC: Alin Ugalde DATE OF SERVICE: 03/28/2017 CHIEF COMPLAINT: Cough, shaking chills, lots of yellow mucus, fever, influenza B. HISTORY OF PRESENT ILLNESS: The patient is an 86-year-old male who last came to see me in February for a viral pulmonary infection that resolved with treatment. Today, he came with a report that he was "doing better," but still coughing. He began coughing several days ago and says that his cough is actually better this morning than he has been. Today, the patient presented for history of coughing for a week, producing a lot of yellow sputum. Although his cough is a little bit better today, when he awoke, he had shaking chills and felt extremely cold. He was thirsty with no appetite and felt very tired. He had a fever of 100.0 orally in the office. His oxygen saturation was low at 93% on room air. His influenza B. test was positive. His temperature was 100.0. He had rhonchi and wheezing in his lungs. His pharynx was dry and he required admission for treatment of his influenza B and supportive treatment of his acute illness. PAST MEDICAL HISTORY: Significant for the recent diagnosis of hypothyroidism based on blood testing done at the [facility] where he sees his paperhanger apprentice regularly for paroxysmal atrial fibrillation. He was started on amiodarone last year and so alterations in his thyroid are to be expected. He has severe gastroesophageal reflux disease, but also he had severe side effects from taking proton pump inhibitors and therefore treats his heartburn with 2 original formula Gissell Free [place]il tablets usually in the evening. He has hyperlipidemia. Low magnesium is difficult to treat, but ordinarily he does well on 1 Slow-Mag tablet a day. From time to time, he has loose stools which he treats with as needed loperamide (Imodium AD). He has pedal edema, treated with low doses of furosemide. He uses doxepin cream by his dermatitis, Dr. Jorge Nance, for postherpetic neuralgia in his right leg. He has obstructive sleep apnea and uses his CPAP machine "every once in a while." He has GERD, hypertension, paroxysmal atrial fibrillation and B12 deficiency. He underwent a cardioversion in 07/2016 at the [facility]. He has macular degeneration, treated with intraocular injections. Allergies: A TREMENDOUS EDEMA DEVELOPED WHILE HE WAS TAKING GABAPENTIN. He has chronic kidney disease, stage 3. [facility] [address] [place] [address] HISTORY AND PHYSICAL Name: CASTROCASSIDY GILMAN Room #: 204-P [facility] IN [facility].#: [id number] Admission: 03/28/17 Attend Phys: Alin Ugalde MD Discharge: 04/03/17 Date of : [birth year] Report #: [id number] On 06/27/2016, he was admitted at [facility] for 2 days for severe postherpetic neuralgia in his right L5-S1 distribution. He has intermittent symptoms of radiation proctitis. Asymptomatic kidney hemorrhagic cyst of the right kidney. Hiatal hernia and peptic ulcer disease. Proton pump inhibitor has caused severe hypokalemia and hypomagnesemia requiring hospital stay in 03/2014 at [facility] and these medications have been discontinued. Hyperlipidemia, dyslipidemia, coronary artery disease. Hypertension, history of gout, chronic kidney disease stage 3. ALLERGIES: PROTON PUMP INHIBITORS CAUSED HYPOKALEMIA AND HYPOMAGNESEMIA. LEVOFLOXACIN CAUSED ITCHING. CURRENT MEDICATIONS: Refresh Optive cdcl-qie-pyuumkr eyedrops in each eye twice daily. Temazepam 15 mg at bedtime. Dulcolax tablets as needed. Baby aspirin 81 mg once daily. Recticare bkcp-ndv-udchnab ointment to the rectal area as needed and can also be placed over the painful area of his right leg. Gissell Free Soil 2 tablets original formula daily at bedtime. Tamsulosin 0.4 mg once at daily Sunday through Fridays. Oxycodone/acetaminophen 5/325, no longer needed. Lidocaine 5% patch, no longer needed. Nortriptyline 10 mg daily, atorvastatin 20 mg daily, Lyrica 50 mg once daily, amiodarone 200 mg daily, magnesium chloride 1 tablet daily, loperamide 2 mg as needed, furosemide 20 mg 1 tablet daily as needed, Eliquis 2.5 mg twice daily for anticoagulation for his PAF. Klor-Con 10 mEq 1 daily, prescribed by Dr. Rabago. B12 1000 mcg daily, doxepin 5% cream is being used to treat his shingles pain under Dr. Jorge Nance's guidance. Levothyroxine 50 mcg once daily. CPAP machine sits next to the head of his bed, but he does not use it very often. PHYSICAL EXAMINATION: GENERAL: He appears mildly confused. He is alert and oriented, appears shaky and ill. HEENT: Unremarkable. His oropharynx is mildly dry. Tympanic membranes are clear. NECK: Negative. CARDIOVASCULAR: The rhythm is regular. The heart tones are normal. ABDOMEN: Soft and nontender. GENITOURINARY: Not indicated. LUNGS: Revealed diffuse wheezing and rhonchi, more on the right than on the left. The oropharynx is dry. S1, S2 are normal and regular. ABDOMEN: Soft and nontender. EXTREMITIES: There is no significant pedal edema present in the legs. ASSESSMENT: [facility] [address] [place] [address] HISTORY AND PHYSICAL Name: CASSIDY CASTRO Room #: 204-P [facility] IN [facility]#: [id number] Admission: 03/28/17 Attend Phys: Alin Ugalde MD Discharge: 04/03/17 Date of : [birth year] Report #: [id number] 1. Influenza B. 2. Dehydration. 3. The patient is mildly confused - toxic encephalopathy. 4. Shortness of breath. 5. Wheezing and rhonchi in both lung rivas, the right greater than the left. 6. Abdomen is soft, nontender. 7. Hypoxia with pCO2 of 27 and a pO2 of 58 on room air. PLAN: We will ask his Pulmonary Medicine hr business partner consultant, Dr. Lopez, to see him urgently. IV fluids. Oseltamivir. Other cultures as may be obtained. <ELECTRONICALLY SIGNED> By: Alin Ugalde MD 05/14/172008 1815 43 Alin Ugalde MD /nt
--- NOTE | ~2017-03-28 | D ---
[facility] [place] [address] DISCHARGE SUMMARY Name: CASSIDY CASTRO Room #: 204-P [facility] IN ..#: [id number] Admission: 03/28/17 Attend Phys: Alin Ugalde MD Discharge: 04/03/17 Date of : [birth year] Report #: [id number] THIS REPORT FOR: //name// CC: Alin Ugalde DATE OF SERVICE: 04/03/2017 SUMMARY OF HISTORY AND PHYSICAL: The patient presented to the office with shaking chills, cough and fever. His influenza test was positive for B. His temperature was 100.0 in the office with his oxygen saturation is low at 93% on room air. He had rhonchi and wheezing. His pharynx was dry. He required admission for treatment of his influenza A and treatment of his rhonchi and wheezing and acute pulmonary symptoms of an acute influenza B infection. SUMMARY OF HOSPITAL COURSE: He was admitted and started on intravenous antibiotics and oseltamivir as well as intravenous fluids. He was seen in Pulmonary Medicine consultation by Dr. Jaden Lopez and he was felt to have influenza with possible pneumonia, but definitely acute bronchitis. Dr. Lopez adjusted his medications. Urine antigens for strep and legionella were both negative. Sputum Gram stain showed moderate wbc's with rare squamous epithelial cells and moderate mixed lauryn. Sputum had many upper respiratory lauryn in them. A chest x-ray showed no acute cardiopulmonary abnormalities being detected. Creatinine was 1.4 and then 1.6. SGPT and SGOT and INR were both labeled as being resistant to medications. Chest x-ray showed no acute process. There were increased changes on the chest x-ray, called patchy mild bilateral central increasing infiltrates, right greater than the left. Tiny effusions were noted. He steadily improved and was discharged to return to his own home with home health. DISCHARGE DIAGNOSES: 1. Acute influenza B. 2. Acute hypoxia. 3. Acute bronchospasm. 4. Volume depleted. 5. Paroxysmal atrial fibrillation. 6. Severe malnutrition after dehydration with an albumin of 05/11/28. PLAN: The patient is discharged home with home health. He finished his [facility] [address] [place] [address] DISCHARGE SUMMARY Name: CASSIDY CASTRO Room #: 204-P [facility] IN M.R.#: [id number] Admission: 03/28/17 Attend Phys: Alin Ugalde MD Discharge: 04/03/17 Date of : [birth year] Report #: [id number] Tamiflu, and is being discharged on Ceftin. His other medications remain unchanged. <ELECTRONICALLY SIGNED> By: Alin Ugalde MD 05/23/17 1705 06 31 Alin Ugalde MD /nt
[~2017-03-28 14:52] MED LIST changes: +COLACE100 MG PO; +LYRICA 75 MG CA75 MG PO; +PERCOCET 5-3251 EACH PO; +TUMS CHEWA500 MG/11 PO
[2017-03-28 15:54] LABS: ABSOLUTE NEUTROPHILS 4.1 thou/uL (1.4-8.2); BASOPHILS 0.8 % (0.0-2.0); EOSINOPHILS 1.2 % (0.0-3.0); HEMATOCRIT 31.9 % (42.0-52.0); HEMOGLOBIN 10.4 gm/dL (14.0-18.0); LYMPHOCYTES 9.2 % (24.0-44.0); MCH 28.8 pg (26.0-34.0); MCHC 32.6 g/dL (28.0-37.0); MCV 88.3 fL (80.0-100.0); MONOCYTES 10.1 % (1.0-8.0); PLATELET COUNT 111 thou/uL (150-400); POLYS 78.7 % (36.0-66.0); RBC 3.61 mil/uL (4.50-6.00); WBC 5.2 thou/uL (4.0-11.0)
[2017-03-28 16:06] LABS: ALBUMIN 3.2 g/dL (3.4-5.0); CALCIUM 8.1 mg/dL (8.5-10.1); CREATININE 1.4 mg/dL (0.7-1.3); MAGNESIUM 1.7 mg/dL (1.8-2.4); POTASSIUM 3.6 mmol/L (3.5-5.1); TOTAL BILIRUBIN 0.8 mg/dL (<0.1-1.0)
[2017-03-28 17:24] VITALS: BP 149/59
[2017-03-28 18:09] LABS: HCO3 19.7 mmol/L (22.0-26.0); PCO2 27.7 mmHg (35.0-45.0); PO2 60.7 mmHg (80.0-100.0); pH 7.469 (7.360-7.450); sO2 93.1 % (92.0-98.0)
[2017-03-28] MEDS ORDERED: DOXEPIN HCL45 GM TOP (19:49)
[2017-03-28] MEDS ORDERED: PACERONE 200 M200 M1 PO (19:54)
[2017-03-28] MEDS ORDERED: SYNTHROID50 MCG PO (19:57)
[2017-03-28] MEDS ORDERED: LOPERAMIDE 2 MG2 M1 PO (20:00)
[2017-03-28] MEDS ORDERED: LASIX 20 MG TAB20 MG PO (20:01)
[2017-03-28] MEDS ORDERED: [UNRECOGNIZED DRUG - OTHER] (20:02)
[2017-03-28] MEDS ORDERED: SLOW PO (20:04)
[2017-03-28] MEDS ORDERED: KLOR-CON 1010 MEQ PO (20:04)
[2017-03-28] MEDS ORDERED: RESTORIL15 M1 PO (20:05)
[2017-03-28] MEDS ORDERED: VITAMIN D1000 UNI1 PO (20:07)
[2017-03-28 20:15] VITALS: BP 176/75
[2017-03-29 05:58] LABS: HEMATOCRIT 27.8 % (42.0-52.0); HEMOGLOBIN 9.3 gm/dL (14.0-18.0); MCH 29.3 pg (26.0-34.0); MCHC 33.4 g/dL (28.0-37.0); MCV 87.8 fL (80.0-100.0); RBC 3.16 mil/uL (4.50-6.00); WBC 5.2 thou/uL (4.0-11.0)
[2017-03-29 06:11] LABS: ALBUMIN 2.7 g/dL (3.4-5.0); CALCIUM 7.6 mg/dL (8.5-10.1); CREATININE 1.2 mg/dL (0.7-1.3); MAGNESIUM 2.2 mg/dL (1.8-2.4); POTASSIUM 3.3 mmol/L (3.5-5.1); TOTAL BILIRUBIN 0.8 mg/dL (<0.1-1.0); TOTAL PROTEIN 6.1 g/dL (6.4-8.2)
[2017-03-29 07:47] VITALS: BP 131/67
[2017-03-29 11:31] VITALS: BP 155/50
[2017-03-29 15:47] VITALS: BP 150/55
[2017-03-29 20:19] VITALS: BP 167/74
[2017-03-30 04:13] LABS: ALBUMIN 2.7 g/dL (3.4-5.0); CALCIUM 7.7 mg/dL (8.5-10.1); CREATININE 1.3 mg/dL (0.7-1.3); POTASSIUM 3.2 mmol/L (3.5-5.1); TOTAL PROTEIN 6.4 g/dL (6.4-8.2)
[2017-03-30 05:22] VITALS: BP 123/57
[2017-03-30 10:45] VITALS: BP 141/56
[2017-03-30 11:17] VITALS: BP 125/59
[2017-03-30 15:16] VITALS: BP 148/60
[2017-03-30 19:24] VITALS: BP 163/75
[2017-03-31 04:36] VITALS: BP 140/44
[2017-03-31 08:02] VITALS: BP 147/47
[2017-03-31 11:15] VITALS: BP 159/73
[2017-03-31 16:40] VITALS: BP 147/72
[2017-03-31 19:56] VITALS: BP 188/95
[2017-04-01 04:13] LABS: CREATININE 1.2 mg/dL (0.7-1.3); POTASSIUM 3.7 mmol/L (3.5-5.1)
[2017-04-01 04:14] VITALS: BP 165/80
[2017-04-01 07:16] VITALS: BP 181/84
[2017-04-01 12:16] VITALS: BP 157/71
[2017-04-01 16:41] VITALS: BP 166/71
[2017-04-01 19:17] VITALS: BP 171/72
[2017-04-02 04:03] VITALS: BP 185/84
[2017-04-02 17:49] VITALS: BP 181/99
[2017-04-02 18:59] VITALS: BP 181/99
[2017-04-02 19:20] VITALS: BP 174/67
[2017-04-03 03:47] VITALS: BP 167/67
[2017-04-03 08:28] VITALS: BP 154/56
[2017-04-03] MEDS ORDERED: BENZONATATE100 MG PO (09:28)
[2017-04-03] MEDS ORDERED: DUONEB 2.5-0.5 M3 ML INH ×2 (09:28→09:41)
[2017-04-03] MEDS ORDERED: CEFUROXIME250 MG PO (09:28)
[2017-04-03 09:55] VITALS: BP 181/99
[2017-04-03 10:03] VITALS: BP 181/99
== END 2017-04-03 10:40 | disposition home health service (06) | DRG 193 ==
LOC: 2N 14:52 → ENTRNSPT 04-03 10:36 → EDTRNSPTSTS 04-03 10:38 → 2N 04-03 10:40
PROVIDERS: Internal Medicine
DX: J10.00 Influenza due to other identified influenza virus with unspecified type of pneumonia (principal); G92 Toxic encephalopathy; E43 Unspecified severe protein-calorie malnutrition; E03.9 Hypothyroidism, unspecified; N18.3 Chronic kidney disease, stage 3 (moderate); I48.0 Paroxysmal atrial fibrillation; I12.9 Hypertensive chronic kidney disease with stage 1 through stage 4 chronic kidney disease, or unspecified chronic kidney disease; E86.0 Dehydration; R09.02 Hypoxemia; K21.9 Gastro-esophageal reflux disease without esophagitis; E78.5 Hyperlipidemia, unspecified; I25.10 Atherosclerotic heart disease of native coronary artery without angina pectoris; M10.9 Gout, unspecified; J20.9 Acute bronchitis, unspecified; G47.33 Obstructive sleep apnea (adult) (pediatric); D64.9 Anemia, unspecified; D69.6 Thrombocytopenia, unspecified; E86.9 Volume depletion, unspecified; K52.9 Noninfective gastroenteritis and colitis, unspecified; Z68.24 Body mass index [BMI] 24.0-24.9, adult; Z79.01 Long term (current) use of anticoagulants; Z79.82 Long term (current) use of aspirin; Z79.899 Other long term (current) drug therapy; Z88.1 Allergy status to other antibiotic agents; Z88.8 Allergy status to other drugs, medicaments and biological substances
CPT/HCPCS: 10081

== ENCOUNTER 2017-04-08 12:03 | Inpatient (IN) | payer OTHER ==
[~2017-04-08] VITALS: Ht 180.3 cm; Wt 71.7 kg
--- NOTE | ~2017-04-08 | H ---
[facility] [place] [address] HISTORY AND PHYSICAL Name: CASSIDY CASTRO Room #: 353-P [facility] IN ..#: [id number] Admission: 04/08/17 Attend Phys: Alin Ugalde MD Discharge: 04/10/17 Date of : [birth year] Report #: [id number] THIS REPORT FOR: //name// CC: Alberto Ugalde DATE OF SERVICE: 04/08/2017 CHIEF COMPLAINT: Fatigue, coughing, falling asleep and dyspnea on any exertion. HISTORY OF PRESENT ILLNESS: The patient was admitted 03/28/2017 and discharged on 04/03/2017 for treatment of acute influenza. He still had some degree of cough at the time of discharge. He went home and instead of continuing to improve, his cough became worse. His oxygen saturation on his home machine was adequate, but he was short of breath with any exertion at all, felt tired, was unable to sleep at night because of the constant coughing. He came to the Emergency Room, where his evaluation indicated that his cough most likely is from a post-infectious bronchospasm and cough. However, it is noted that his troponin level is abnormally high (although minimally so) and his NT-proBNP is markedly elevated over 5000. PAST MEDICAL HISTORY: Significant for his influenza just 2 weeks ago. He was seen in Pulmonary Medicine consultation by Dr. Jaden Lopez. He was administered Tamiflu, bronchodilators and antibiotics. He has a history of hypertension, paroxysmal atrial fibrillation and he has been treated with an ablation; hypothyroidism; GERD; B12 deficiency; postherpetic neuralgia in the right leg; hyperlipidemia and coronary artery disease. He has a history of gout and chronic kidney disease stage 3. He was discharged 06/29/2016 after being admitted for 2 days because of black tarry stools. He had an episode of loose stools and postherpetic neuralgia pain, for which he was hospitalized 06/27/2016 to 06/29/2016. He has had severe malnutrition. He has been hospitalized for hypokalemia and hypomagnesemia that has been caused by proton pump inhibitors. His esophageal reflux is managed with tjar-pfp-nhdcdfd Tums and occasionally Gissell-[place] tablets. He was admitted 06/27/2016 for acute postherpetic pain in the right L5-S1 distribution. He has had radiation proctitis. He has a hemorrhagic cyst on the right kidney that is asymptomatic. He has obstructive sleep apnea and as of this time last year was using his CPAP machine every night. His direct cardioversion, 06/19/2016, was done by Dr. Prabhu Rabago at the [facility]. He was admitted 05/16/2016 and discharged 3 days later for acute progressive zoster in the right L5-S1 [place] [address] HISTORY AND PHYSICAL Name: CASSIDY CASTRO Room #: 353-P [facility] IN .R.#: [id number] Admission: 04/08/17 Attend Phys: Alin Ugalde MD Discharge: 04/10/17 Date of : [birth year] Report #: [id number] distribution. He has coronary artery disease. He has severe gastroesophageal reflux. Vitamin B12 deficiency. Vitamin D deficiency. Hypomagnesemia and hypokalemia. Distant history of a colon polyp. Rectal radiation enteritis beginning 7 years ago, that is well controlled with one Imodium tablet on a daily basis. History of gout. Metabolic acidosis from diarrhea. Echocardiogram, 2014, at an outside institution showed normal left ventricle with widely patent left circumflex stent and other coronary arteries were patent as well. Mildly elevated pulmonary artery pressure in the upper 30s at that time. CURRENT MEDICATIONS: (Taken from the bag of medications from home he brought with him): Amiodarone 200 mg once daily; apixaban 2.5 mg (Eliquis 2.5 mg) twice daily; aspirin 81 mg daily; Gissell-[place] tablets, original one tablet as needed. Atorvastatin 20 mg daily. Benzonatate (Tessalon Perles) 100 mg 3 times daily and he made the note that his father and he find these to be very effective. Carboxymethylcellulose sodium tears both eyes as needed. Cefuroxime 250 mg 1 pill twice daily, doxepin cream 45-gram tube applied a thin coat 3 times a day to the affected areas of the right leg (has been very effective according to the patient). Furosemide 20 mg (Lasix 20 mg) and potassium 10 mEq once daily. DuoNebs by aerosolized bronchodilator twice daily. Levothyroxine 50 mcg once daily. Loperamide 2 mg 1/2 tablet daily. Magnesium chloride solution. Nitroglycerin 0.4 mg/dL, tamsulosin 0.4 mg one daily, temazepam 15 mg capsule one daily, lidocaine 4% HCT (topically is effective for the pain). Afrin nose spray has been of no benefit. SOCIAL HISTORY: He lives by himself in an independent living apartment at [facility]. His son has come from out of town to stay with him for a week or more if needed. FAMILY HISTORY: Noncontributory - his first-degree relatives have all already. PHYSICAL EXAMINATION: GENERAL: Exam shows an 86-year-old male who is coughing constantly through the interview. He is awake, alert and oriented. His son, Wilson, is present during the exam and helps materially. HEENT: Unremarkable. NECK: Jugular venous pressure waves are normal. LUNGS: Clear. ABDOMEN: Soft and nontender. There is no edema. NEUROLOGIC: There are no focal neurological deficits in the trailer. LABORATORY DATA: His troponin is mildly elevated at 0.24. His BNP is markedly elevated at 5200. ASSESSMENT: [facility] [address] [place] [address] HISTORY AND PHYSICAL Name: CASSIDY CASTRO Room #: 353-P [facility]#: [id number] Admission: 04/08/17 Attend Phys: Alin Ugalde MD Discharge: 04/10/17 Date of : [birth year] Report #: [id number] 1. Post-infectious cough. 2. Still recovering from last weekend's treatment of pneumonia. 3. Hypertension (blood pressure is 204/88 in the Emergency Room). 4. INTOLERANT OF PROTON PUMP INHIBITORS - they cause hypokalemia and hypomagnesemia. 5. Other medical problems are in the previous history and physical. PLAN: The patient has been seen by both the Pulmonary Service and the Cardiology Service. They both feel that he has the post-infectious bronchospasm. He has been started on corticosteroids and a broad-spectrum antibiotic. <ELECTRONICALLY SIGNED> By: Alin Ugalde MD 04/12/17 1512 2323 0044 Alin Ugalde MD /nt
--- NOTE | ~2017-04-08 | D ---
[facility] [place] [address] DISCHARGE SUMMARY Name: CASSIDY CASTRO Room #: 353-P [facility] IN M.R.#: [id number] Admission: 04/08/17 Attend Phys: Alin Ugalde MD Discharge: 04/10/17 Date of : [birth year] Report #: [id number] THIS REPORT FOR: //name// CC: Alberto Uaglde ADDENDUM ADDITIONAL DIAGNOSIS: Severe malnutrition. Criteria were met: Albumin of 2.8, absolute lymphocyte count of 569. <ELECTRONICALLY SIGNED> By: Alin Ugalde MD 04/12/17 1512 1525 1844 Alin Ugalde MD /nt
--- NOTE | ~2017-04-08 | EKG ---
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: cweiwalter : 1930 Requested By: Izabella Arriaga Order Number: [id number] MD: Talon Martini Measurements Intervals [place] Rate: 67 P: 34 AR: 223 QRS: -8 QRSD: 100 T: 182 QT: 477 QTc: 504 Interpretive Statements Sinus rhythm Prolonged AR interval Nonspecific ST segment abnormality Prolonged QT interval Compared to ECG 06/28/2016 07:42:59 Sinus rhythm has replaced atrial fibrillation Electronically Signed On 04-09-2017 8:20:20 ASSISTANT PROFESSOR OF SPANISH by Talon Martini [email or web address] <ELECTRONICALLY SIGNED> By: Talon Martini MD, [facility] 04/09/17 0820 1329 Talon Martini MD, [facility] /EPI
--- NOTE | ~2017-04-08 | HC ---
[facility] [place] [address] CONSULTATION Name: CASSIDY CASTRO Room #: 353-P [facility] IN ..#: [id number] Admission: 04/08/17 Attend Phys: Alin Ugalde MD Discharge: Date of : [birth year] Report #: [id number] THIS REPORT FOR: //name// CC: Alberto Ugalde REASON FOR CONSULTATION: Fatigue, cough. HISTORY OF PRESENT ILLNESS: The patient is an 86-year-old gentleman who presents with recent viral pneumonia and influenza. He was hospitalized and discharged 3 days ago. Since being discharged, he has had a nonproductive cough. He has had excessive fatigue. He denies recurrent fevers, chills or night sweats. He denies palpitations or symptoms to suggest recurrent atrial fibrillation. About 6 months ago and under the care of Dr. Steve Pierre at , he underwent cardioversion that has failed to restore sinus rhythm. He was ultimately placed on amiodarone and it sounds like he converted pharmacologically. There have been no symptoms to suggest recurrence. He denies orthopnea or paroxysmal nocturnal dyspnea. No history of near syncope or syncope. ALLERGIES: HE HAS HAD INTOLERANCE TO GABAPENTIN. MEDICATIONS: Include Lipitor 20 mg daily, Lasix 20 mg daily, potassium 10 mEq daily, levothyroxine 50 mcg daily, amiodarone 200 mg daily and Eliquis 2.5 mg twice daily. PAST MEDICAL HISTORY: His past history and medical records have been reviewed and include a history of coronary artery disease with remote stenting in 2008. He has had recurrent angina, paroxysmal atrial fibrillation, reflux disease, postherpetic neuralgia, sleep apnea for which he uses CPAP and stage 3 chronic kidney disease. SOCIAL HISTORY: He is a nonsmoker. He is retired from [employer]. FAMILY HISTORY: Unremarkable for premature coronary artery disease. REVIEW OF SYSTEMS: All systems negative, except as that noted above. PHYSICAL EXAMINATION: GENERAL: Exam reveals a pleasant gentleman who is alert and in no distress. VITAL SIGNS: Blood pressure is 148/64, heart rate is 77 and regular. He is afebrile. HEENT: There are neither xanthelasmas, subcutaneous xanthomata, oral mucosal or digital cyanosis or kyphoscoliosis present. CHEST: Reveals diminished breath sounds at both bases. CARDIAC EXAMINATION: Regular rate and rhythm, with normal S1, S2. Jugular venous pressure is not elevated. [facility] [address] [place] [address] CONSULTATION Name: CASSIDY CASTRO Room #: 353-P [facility] IN .R.#: [id number] Admission: 04/08/17 Attend Phys: Alin Ugalde MD Discharge: Date of : [birth year] Report #: [id number] ABDOMEN: Soft and nontender. EXTREMITIES: Without cyanosis, clubbing or edema. Radial pulses are 2+. NEUROLOGIC: He is alert, with a nonfocal exam. LABORATORY DATA: Sodium is 140, potassium 4.2 and creatinine 1.5. ProBNP of 5000. Troponin 0.24. White count 7.4, hemoglobin 9.7, hematocrit 30 and platelet count 311,000. Chest x-ray demonstrates interval improvement in the perihilar infiltrates and nodular opacity of the right upper lung. EKG, sinus rhythm. IMPRESSION: 1. Recovering influenza and pneumonia, a possible component of bronchospasm. 2. Paroxysmal atrial fibrillation, maintained in sinus rhythm on low-dose amiodarone. 3. Coronary artery disease with remote stenting, clinically stable. 4. Dyslipidemia. 5. Hypercoagulable. RECOMMENDATIONS: I do not believe there are any active cardiovascular issues ongoing. I suspect that his excessive fatigue and cough are related to recent influenza, for which he is slowly recovering from. Continued use of low-dose amiodarone and apixaban is recommended. No additional cardiovascular testing is needed at this point. Thank you for asking me to participate in his care. <ELECTRONICALLY SIGNED> By: Tlaon Martini MD, [facility] 04/09/17 0908 1833 2135 Talon Martini MD, FACC /nt
--- NOTE | ~2017-04-08 | D ---
[facility] [place] [address] DISCHARGE SUMMARY Name: CASSIDY CASTRO Room #: 353-P [facility] IN ..#: [id number] Admission: 04/08/17 Attend Phys: Alin Ugalde MD Discharge: 04/10/17 Date of : [birth year] Report #: [id number] THIS REPORT FOR: //name// CC: Alberto Rabago MD DATE OF SERVICE: 04/10/2017 SUMMARY OF HISTORY AND PHYSICAL: The patient has recently been admitted 03/28/2017 and discharge 04/03/2017 for treatment of acute influenza. He went home and his son came in from out of town to be with him. He initially was feeling better, but then developed a nasty cough. He became tired. He could not get a good night sleep because of the severity of his cough. Benzonatate tablets helped with the cough, but not enough to give him a good night sleep. He was falling asleep sitting up during the daytime when his son brought him to the Emergency Room for further evaluation. In the Emergency Room, his troponin level was abnormal and his NT-proBNP was also abnormal, he was fatigued and tired and had a constant dry cough, and required admission for further evaluation and therapy. In addition, his blood pressure was 204/88, this was an additional indication for hospitalization. SUMMARY OF HOSPITAL COURSE: He was admitted and was found to be hypoxic and required supplemental oxygen. He was seen by the Cardiology service who felt that his cardiac status was stable, and they recommended no change in his medications, but that he be treated for his cough, which they felt was post-infectious bronchospasm. He was seen by the Pulmonary Medicine Service who also felt that his cough was post-infectious. Intravenous Solu-Medrol 62.5 mg every 8 hours IV push was started. He required sliding scale insulin because his blood sugars immediately popped up, as high as 219. His cough steadily improved throughout his hospital stay and on the day of discharge, he was not coughing at all. On the day of discharge, he complained of restlessness or a burning or a numb feeling in the bottom of his feet. Exam of his feet was normal other than the skin of his legs and feet was mildly dry and he needed to use more lotion. His lungs were clear. His heart tones were normal and regular. LABORATORY DATA: His creatinine was mildly elevated at 1.5 and 1.6. With corticosteroids, his BUN went from an admitting level of 18 up to 38. His blood sugar was mildly elevated at 118 on admission, but promptly responded to 192 and 216 with the administration of IV Solu-Medrol. [address] [address] DISCHARGE SUMMARY Name: CASSIDY CASTRO Room #: 353-P [facility] IN M.R.#: [id number] Admission: 04/08/17 Attend Phys: Alin Ugalde MD Discharge: 04/10/17 Date of : [birth year] Report #: [id number] His magnesium was normal at 1.8. Albumin was low at 2.8, and absolute lymphocyte count 569, criteria for severe malnutrition. His troponin was elevated at 0.24 (under 0.06). His NT-proBNP was 5076 (under 300). WBCs on admission 7800, hemoglobin was mildly low at 9.7, hematocrit 30, there was some mild left shift at 77.9% segmented neutrophils and lymphocytes were low at 7.7% for an absolute lymphocyte count of 569. Monocytes were high at 11.2%. Urinalysis was normal except for a trace of blood, culture was not obtained since he was taking cefuroxime at the time of admission. Room air arterial blood gas showed a pH of 7.484, pCO2 of 27.0, and pO2 of 63.4. Base excess was -2.6. Measured bicarbonate was mildly low at 19.8. Portable chest x-ray showed the heart to be enlarged, along with an improvement in bilateral perihilar interstitial infiltrates when compared with 04/02/2017. The following day, chest x-ray showed mild atelectasis in the bases and was otherwise improved. There was a suggestion of thyroid gland enlargement. DISCHARGE DIAGNOSES: 1. Post viral/infectious bronchospasm and cough. 2. Recent influenza infection/pneumonitis - resolved. 3. Paroxysmal atrial fibrillation - the patient remained in sinus rhythm on telemetry during his hospital stay. 4. Obstructive sleep apnea and the patient declines BiPAP. 5. Stable coronary artery disease with remote stents. 6. Sleepiness, improved. 7. Hypertension - metoprolol succinate 25 mg once daily was initiated and well tolerated. Note: He has taken as much as 100 mg a day of this medication in the recent past. 8. Abnormal oximetries/hypoxemia - resolved (exercise oximetry did not qualify for home oxygen during the 250 feet he walked on the day of discharge). 9. Other multiple medical problems as listed in the history and physical. 10. Mild volume depletion. 11. Severe malnutrition. Criteria were met: Albumin of 2.8, absolute lymphocyte count of 569. 12. Mildly dry skin. 13. Burning and discomfort bottoms of feet, to be further evaluated. PLAN: The patient is returned home with home health. His son is in town and will stay with him for a few days. A pillbox medication management plan is to be started with home health setting it up tomorrow on a home visit already scheduled. NEW MEDICATIONS: Prednisone 10 m, 5, 4, 3, 2, 1 and then stop. [facility] [address] [place] [address] DISCHARGE SUMMARY Name: CASSIDY CASTRO Room #: 353-P [facility] IN [facility].#: [id number] Admission: 04/08/17 Attend Phys: Alin Ugalde MD Discharge: 04/10/17 Date of : [birth year] Report #: [id number] Metoprolol succinate 25 mg once daily. His other medications remain the same, as listed in the history and physical. He was instructed to apply more good quality hand lotion to the bottom of his feet and to his legs and skin. He is to come to see me in my office next week and to bring all his medications and his nebulizer medication as well. <ELECTRONICALLY SIGNED> By: Alin Ugalde MD 04/12/17 1512 1524 1913 Alin Ugalde MD /nt
[~2017-04-08 12:03] MED LIST changes: +BENZONATATE100 MG PO; +CEFUROXIME250 MG PO; +DOXEPIN HCL45 GM TOP; +DUONEB 2.5-0.5 M3 ML INH; +KLOR-CON 1010 MEQ PO; +RESTORIL15 M1 PO; +SLOW PO; +SYNTHROID50 MCG PO; +VITAMIN D1000 UNI1 PO; +[UNRECOGNIZED DRUG - OTHER]
[2017-04-08 12:04] VITALS: BP 203/90
[2017-04-08 13:05] LABS: BE(vivo) -2.6 mmol/L (-2 to +3); HCO3 19.8 mmol/L (22.0-26.0); PO2 63.4 mmHg (80.0-100.0); pH 7.484 (7.360-7.450); sO2 94.1 % (92.0-98.0)
[2017-04-08 13:08] LABS: ABSOLUTE NEUTROPHILS 5.7 thou/uL (1.4-8.2); BASOPHILS 1.1 % (0.0-2.0); EOSINOPHILS 2.1 % (0.0-3.0); HEMOGLOBIN 9.7 gm/dL (14.0-18.0); LYMPHOCYTES 7.7 % (24.0-44.0); MCH 28.7 pg (26.0-34.0); MCHC 32.4 g/dL (28.0-37.0); MCV 88.6 fL (80.0-100.0); MONOCYTES 11.2 % (1.0-8.0); PLATELET COUNT 311 thou/uL (150-400); POLYS 77.9 % (36.0-66.0); RBC 3.39 mil/uL (4.50-6.00); RDW 18.1 % (10.5-14.5); WBC 7.4 thou/uL (4.0-11.0)
[2017-04-08 13:15] LABS: CALCIUM 8.8 mg/dL (8.5-10.1); CREATININE 1.5 mg/dL (0.7-1.3); POTASSIUM 4.2 mmol/L (3.5-5.1)
[2017-04-08 13:25] LABS: TROPONIN-I 0.24 ng/mL (<0.06)
[2017-04-08 13:52] LABS: URINE BILIRUBIN NEGATIVE (Negative); URINE BLOOD TRACE (Negative); URINE CLARITY CLEAR; URINE COLOR YELLOW; URINE GLUCOSE-RANDOM* NEGATIVE (Negative); URINE KETONES NEGATIVE (Negative); URINE LEUKOCYTES-REFLEX NEGATIVE (Negative); URINE NITRITE-REFLEX NEGATIVE (Negative); URINE PROTEIN (DIPSTICK) NEGATIVE (Negative); URINE SPECIFIC GRAVITY 1.015 (1.005-1.035); URINE UROBILINOGEN 0.2 E.U./dl (0.2-1.0)
[2017-04-08 16:08] VITALS: BP 174/71
[2017-04-08 16:09] VITALS: BP 175/77
[2017-04-08 16:30] VITALS: BP 148/64
[2017-04-08 20:00] VITALS: BP 199/89
[2017-04-09] VITALS (7 sets, daily range): BP systolic 132–158; BP diastolic 51–68
[2017-04-09 06:54] LABS: HEMATOCRIT 30.6 % (42.0-52.0); HEMOGLOBIN 9.7 gm/dL (14.0-18.0); MCH 28.1 pg (26.0-34.0); MCHC 31.8 g/dL (28.0-37.0); MCV 88.2 fL (80.0-100.0); RBC 3.47 mil/uL (4.50-6.00); RDW 17.9 % (10.5-14.5); WBC 5.8 thou/uL (4.0-11.0)
[2017-04-09 07:06] LABS: ALBUMIN 2.8 g/dL (3.4-5.0); CALCIUM 8.7 mg/dL (8.5-10.1); CREATININE 1.4 mg/dL (0.7-1.3); POTASSIUM 4.3 mmol/L (3.5-5.1); TOTAL BILIRUBIN 0.7 mg/dL (<0.1-1.0); TOTAL PROTEIN 6.9 g/dL (6.4-8.2)
[2017-04-10 03:52] VITALS: BP 139/50
[2017-04-10 06:40] LABS: ALBUMIN 2.8 g/dL (3.4-5.0); CALCIUM 8.6 mg/dL (8.5-10.1); CREATININE 1.6 mg/dL (0.7-1.3); PHOSPHORUS 3.6 mg/dL (2.5-4.9); POTASSIUM 4.4 mmol/L (3.5-5.1)
[2017-04-10 08:23] VITALS: BP 153/70
[2017-04-10 08:38] VITALS: BP 153/70
[2017-04-10] MEDS ORDERED: VITAMIN B-12500 MCG PO (14:09)
[2017-04-10] MEDS ORDERED: TOPROL XL25 MG PO (14:09)
[2017-04-10] MEDS ORDERED: PREDNISONE 10 M10 MG PO (14:15)
== END 2017-04-10 15:33 | disposition home health service (06) | DRG 202 ==
LOC: ER 12:03 → 3W 14:59 → EROBS 14:59 → 3W 16:15 → ENTRNSPT 04-10 15:01 → EDTRNSPTSTS 04-10 15:04 → 3W 04-10 15:33
PROVIDERS: Emergency Medicine; Internal Medicine; Internal Medicine Pulmonary Disease
DX: J98.01 Acute bronchospasm (principal); E43 Unspecified severe protein-calorie malnutrition; D68.59 Other primary thrombophilia; E71.318 Other disorders of fatty-acid oxidation; I48.91 Unspecified atrial fibrillation; R40.0 Somnolence; I25.10 Atherosclerotic heart disease of native coronary artery without angina pectoris; I48.0 Paroxysmal atrial fibrillation; I12.9 Hypertensive chronic kidney disease with stage 1 through stage 4 chronic kidney disease, or unspecified chronic kidney disease; K21.9 Gastro-esophageal reflux disease without esophagitis; N18.3 Chronic kidney disease, stage 3 (moderate); R09.02 Hypoxemia; E78.5 Hyperlipidemia, unspecified; G47.33 Obstructive sleep apnea (adult) (pediatric); E86.9 Volume depletion, unspecified; T25.029A Burn of unspecified degree of unspecified foot, initial encounter; Z79.899 Other long term (current) drug therapy; Z95.5 Presence of coronary angioplasty implant and graft; Z88.1 Allergy status to other antibiotic agents; Z99.81 Dependence on supplemental oxygen; Z68.22 Body mass index [BMI] 22.0-22.9, adult
CPT/HCPCS: 10779

== ENCOUNTER → 2017-05-14 | Outpatient (CLI) | payer OTHER ==
[~2017-05-14] MED LIST changes: +FUROSEMIDE 40 M40 M1 PO; +TOPROL XL25 MG PO; +VITAMIN B-12500 MCG PO
== END ==
LOC: RAD 10:41
DX: I51.7 Cardiomegaly (principal)

== ENCOUNTER 2017-06-08 14:26 | Inpatient (IN) | payer OTHER ==
[~2017-06-08] VITALS: Ht 180.3 cm; Wt 74.9 kg
--- NOTE | ~2017-06-08 | EKG ---
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 : 1930 Requested By: Virgilio Lopez Order Number: [id number] MD: Talon Martini Measurements Intervals [place] Rate: 65 P: ME: QRS: -5 QRSD: 99 T: 130 QT: 485 QTc: 505 Interpretive Statements Sinus rhythm with first-degree AV block Prolonged QT interval Nonspecific ST and T wave abnormality Compared to ECG 06/08/2017 14:48:07 No significant change was found Electronically Signed On 06-10-2017 12:52:15 CDT by Talon Martini [email or web address] <ELECTRONICALLY SIGNED> By: Talon Martini MD, [facility] 06/10/171251 21 21 Talon Martini MD, [facility] /EPI
--- NOTE | ~2017-06-08 | 2DMMODE ---
[facility] [address] [place] [address] 2 D/M-MODE ECHOCARDIOGRAM Name: CASSIDY CASTRO Room #: 349-I ADM IN ..#: [id number] Admission: 06/08/17 Attend Phys: Alin Ugalde, Discharge: Date of : [birth year] Date of Service: 06/09/17 1215 Report #: [id number] THIS REPORT FOR: //name// APPROVED REPORT Study performed: 06/09/2017 07:56:44 EXAM: Comprehensive 2D, Doppler, and color-flow Echocardiogram Patient Location: Bedside Room #: 349 Status: on-call BSA: 1.96 HR: 52 bpm BP: 143/60 mmHg Other Information Study Quality: Adequate Indications New CHF. Hx: CAD, stent, CHF, Afib 2D Dimensions RVDd: 39.99 mm LVEF(%): 53.05 (>50%) IVSd: 14.32 (7-11mm) LVOT Diam: 22.27 (18-24mm) LVDd: 40.83 mm PWd: 11.59 (7-11mm) Ascending Ao: 35.99 (22-36mm) LVDs: 29.83 (25-40mm) Aortic Root: 35.02 mm Peraza's LVEF: 53.05 % Volumes Left Atrial Volume (Systole) Single Plane 4CH: 99.85 mL Single Plane 2CH: 77.32 mL LA ESV Index: 48.00 mL/m2 Aortic Valve AoV Peak Ed.: 2.03 m/s AO Peak Gr.: 16.55 mmHg LVOT Max P.94 mmHg LVOT Max V: 1.58 m/s DEREK Vmax: 3.02 cm2 AI Vmax: 4.08 m/s AI [place]: 2.17 m/s2 AI PHT: 545.80 ms Mitral Valve [facility] [place] [address] 2 D/M-MODE ECHOCARDIOGRAM Name: CASSIDY CASTRO Room #: 349-I [facility] IN .R.#: [id number] Admission: 06/08/17 Attend Phys: Alin Ugalde, Discharge: Date of : [birth year] Date of Service: 06/09/17 1215 Report #: [id number] E/A Ratio: 1.7 MV Decel. Time: 195.13 ms MV E Max Ed.: 0.78 m/s MV A Ed.: 0.47 m/s MV PHT: 56.59 ms IVRT: 87.66 ms Pulmonary Valve PV Peak Ed.: 0.83 m/s PV Peak Gr.: 2.78 mmHg Tricuspid Valve TR Peak Ed.: 3.48 m/s RAP Estimate: 5.00 mmHg TR Peak Gr.: 48.41 mmHg PA Pressure: 53.00 mmHg Left Ventricle The left ventricle is normal size. Mild concentric left ventricular hypertrophy. Left ventricular systolic function is normal. LVEF is 55%. Moderate diastolic dysfunction is present (pseudonormal filling). Right Ventricle The right ventricle is normal size. The right ventricular systolic function is normal. Atria Left atrium is severely dilated. Right atrium is severely dilated. Aortic Valve The Aortic valve is sclerotic. Moderate aortic regurgitation. There is no aortic valvular stenosis. Mitral Valve Mitral valve leaflets are thickened. Mild to moderate mitral regurgitation. Tricuspid Valve The tricuspid valve is normal in structure. Moderate tricuspid regurgitation. Estimated PAP is 50-55mmHg. Pulmonic Valve The pulmonary valve is normal in structure. Mild pulmonic regurgitation. Great [employer] [facility] [address] [place] [address] 2 D/M-MODE ECHOCARDIOGRAM Name: CASTROCASSIDY GILMAN Room #: 349-I [facility] IN ..#: [id number] Admission: 06/08/17 Attend Phys: Alin Ugalde, Discharge: Date of : [birth year] Date of Service: 06/09/17 1215 Report #: [id number] The aortic root is normal in size. The ascending aorta is normal in size. IVC is normal in size and collapses >50% with inspiration. Pericardium There is no pericardial effusion. <Conclusion> The left ventricle is normal size. Mild concentric left ventricular hypertrophy. LVEF is 55%. Moderate diastolic dysfunction is present (pseudonormal filling). The right ventricle is normal size. Left atrium is severely dilated. Right atrium is severely dilated. The Aortic valve is sclerotic. Moderate aortic regurgitation. There is no aortic valvular stenosis. Mild to moderate mitral regurgitation. Moderate tricuspid regurgitation. Estimated PAP is 50-55mmHg. The aortic root is normal in size. There is no pericardial effusion. <ELECTRONICALLY SIGNED> By: Drake Carcamo MD, FACC 06/09/17 1215 14 14 Drake Carcamo MD, FACC /INF
--- NOTE | ~2017-06-08 | HC ---
[facility] [place] [address] CONSULTATION Name: CASSIDY CASTRO Room #: 349-I [facility].#: [id number] Admission: 06/08/17 Attend Phys: Alin Ugalde MD Discharge: 06/11/17 Date of : [birth year] Report #: [id number] THIS REPORT FOR: //name// CC: Alin Ugalde DATE OF SERVICE: 06/11/2017 REASON FOR CONSULTATION: Lower extremity edema. HISTORY OF PRESENT ILLNESS: The patient is an 87-year-old gentleman with a recent history of viral pneumonia and influenza. He has had slow recovery from this with fatigue and exertional breathlessness. He saw Dr. Lopez in the office on Sunday with lower extremity edema and heart failure, was admitted for further evaluation. The patient denies chest pain, pressure or ischemic type symptoms. He has had resolution of his lower extremity edema with intravenous furosemide through the weekend. He denies orthopnea or paroxysmal nocturnal dyspnea. He is largely asymptomatic from paroxysms of his atrial fibrillation, there have been no recent occurrences. ALLERGIES: Include GABAPENTIN, PROTON PUMP INHIBITORS and LEVAQUIN. MEDICATIONS: Lipitor 20 mg daily, Lasix 20 mg daily, potassium 10 mEq daily, levothyroxine 50 mcg daily, amiodarone 200 mg daily, and Eliquis 2.5 mg twice daily. PAST MEDICAL HISTORY: Notable for coronary artery disease with stenting in 2008, paroxysmal atrial fibrillation, reflux disease, postherpetic neuralgia, sleep apnea for which he uses CPAP and stage 3 chronic kidney disease. SOCIAL HISTORY: He is retired from [employer], he is a nonsmoker. FAMILY HISTORY: Unremarkable for premature coronary artery disease. REVIEW OF SYSTEMS: All systems negative except as that noted above. PHYSICAL EXAMINATION: GENERAL: Reveals a pleasant gentleman, in no distress. VITAL SIGNS: Blood pressure is 139/40, heart rate of 55 and regular, he is afebrile, 5 feet 11 inches tall, 165 pounds. HEENT: There are neither xanthelasma, subcutaneous xanthomata, oral mucosal or digital cyanosis or kyphoscoliosis present. CHEST: Clear to auscultation and percussion. CARDIAC: Regular rate and rhythm with normal S1, S2. There is a systolic murmur at the left sternal border. ABDOMEN: Soft and nontender. EXTREMITIES: Without cyanosis, clubbing or edema. Radial pulses are 2+. [facility] [address] [place] [address] CONSULTATION Name: CASSIDY CASTRO Room #: 349-I [facility] IN [facility].#: [id number] Admission: 06/08/17 Attend Phys: Alin Ugalde MD Discharge: 06/11/17 Date of : [birth year] Report #: [id number] NEUROLOGIC: He is alert with a nonfocal exam. LABORATORY DATA: Chest x-ray demonstrates patchy infrahilar infiltrates. CT scan demonstrated no evidence of pulmonary embolism. Sodium 140, potassium 3.5, creatinine 1.4. ProBNP of 4952. Troponin 0.10. EKG, sinus rhythm with nonspecific ST segment abnormality. White count 7.2, hemoglobin 9.4, hematocrit 28, platelet count 192. Echocardiogram reviewed, normal left ventricular systolic function, biatrial enlargement, moderate aortic insufficiency, nzol-oo-rricvexf mitral insufficiency with pulmonary hypertension. IMPRESSION: 1. Acute on chronic diastolic heart failure. 2. Paroxysmal atrial fibrillation, now in sinus. 3. Coronary artery disease with remote stenting, no angina or ischemic type symptoms. 4. Hypertension. 5. Chronic kidney disease, stage 3. 6. Hypercoagulable. RECOMMENDATIONS: 1. The patient's volume status is stable, I have recommended migrating him back from IV to oral furosemide. Dietary salt restriction discussed. Thyroid function studies have been ordered. 2. Continued use of low dose amiodarone and anticoagulant therapy. Thank you for asking me to participate in his care. <ELECTRONICALLY SIGNED> By: Talon Martini MD, FACC 06/13/17 0734 0746 1043 Talon Martini MD, FACC /nt
--- NOTE | ~2017-06-08 | EKG ---
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 : 1930 Requested By: Linnea Templeton Order Number: [id number] MD: Talon Martini Measurements Intervals [place] Rate: 65 P: SC: QRS: -5 QRSD: 97 T: 122 QT: 473 QTc: 492 Interpretive Statements Sinus rhythm with first-degree AV block Nonspecific ST and T wave abnormality Compared to ECG 04/08/2017 13:29:24 no significant change was found Electronically Signed On 06-08-2017 15:47:57 CDT by Talon Martini [email or web address] <ELECTRONICALLY SIGNED> By: Talon Martini MD, [facility] 06/08/17 1547 1448 1448 Talon Martini MD, FACC /EPI
[~2017-06-08 14:26] MED LIST changes: -FUROSEMIDE 40 M40 M1 PO
[2017-06-08 14:34] VITALS: BP 185/59
[2017-06-08 15:56] LABS: ABSOLUTE NEUTROPHILS 5.5 thou/uL (1.4-8.2); BASOPHILS 1.8 % (0.0-2.0); EOSINOPHILS 2.5 % (0.0-3.0); HEMATOCRIT 29.1 % (42.0-52.0); HEMOGLOBIN 9.3 gm/dL (14.0-18.0); LYMPHOCYTES 8.5 % (24.0-44.0); MCH 28.3 pg (26.0-34.0); MCHC 31.9 g/dL (28.0-37.0); MCV 88.7 fL (80.0-100.0); MONOCYTES 10.6 % (1.0-8.0); PLATELET COUNT 199 thou/uL (150-400); POLYS 76.6 % (36.0-66.0); RBC 3.28 mil/uL (4.50-6.00); RDW 19.8 % (10.5-14.5); WBC 7.1 thou/uL (4.0-11.0)
[2017-06-08 16:05] LABS: CALCIUM 8.6 mg/dL (8.5-10.1); CREATININE 1.6 mg/dL (0.7-1.3)
[2017-06-08 16:11] LABS: BE(vivo) -2.8 mmol/L (-2 to +3); HCO3 20.3 mmol/L (22.0-26.0); PCO2 29.9 mmHg (35.0-45.0); PO2 70.6 mmHg (80.0-100.0); pH 7.449 (7.360-7.450); sO2 95.1 % (92.0-98.0)
[2017-06-08 16:14] LABS: TOTAL BILIRUBIN 1.1 mg/dL (<0.1-1.0); TOTAL PROTEIN 6.7 g/dL (6.4-8.2); TROPONIN-I 0.11 ng/mL (<0.06)
[2017-06-08 16:29] LABS: ANISOCYTOSIS 2+; MICROCYTES FEW; PLATELET ESTIMATE NORMAL
[2017-06-08 16:30] LABS: MACROCYTES FEW; POLYCHROMASIA SLIGHT
[2017-06-08 17:32] VITALS: BP 153/59
[2017-06-08 18:22] VITALS: BP 162/67
[2017-06-08 18:49] VITALS: BP 189/87
[2017-06-08 20:49] VITALS: BP 181/70
[2017-06-08 23:39] VITALS: BP 183/74
[2017-06-09 04:26] VITALS: BP 162/64
[2017-06-09 07:21] VITALS: BP 143/60
[2017-06-09 07:41] LABS: HEMATOCRIT 28.9 % (42.0-52.0); HEMOGLOBIN 9.4 gm/dL (14.0-18.0); MCH 28.5 pg (26.0-34.0); MCHC 32.6 g/dL (28.0-37.0); MCV 87.4 fL (80.0-100.0); RBC 3.3 mil/uL (4.50-6.00); RDW 18.9 % (10.5-14.5); WBC 7.2 thou/uL (4.0-11.0)
[2017-06-09 07:52] LABS: ALBUMIN 2.9 g/dL (3.4-5.0); CALCIUM 8.4 mg/dL (8.5-10.1); CREATININE 1.5 mg/dL (0.7-1.3); TOTAL BILIRUBIN 1.1 mg/dL (<0.1-1.0); TOTAL PROTEIN 6.5 g/dL (6.4-8.2)
[2017-06-09 11:58] VITALS: BP 128/53
[2017-06-09 16:34] VITALS: BP 153/76
[2017-06-09 19:26] VITALS: BP 159/63; BP 163/59
[2017-06-10 00:08] VITALS: BP 122/57
[2017-06-10 04:01] VITALS: BP 142/68
[2017-06-10 08:02] LABS: ALBUMIN 2.9 g/dL (3.4-5.0); CALCIUM 8.4 mg/dL (8.5-10.1); CREATININE 1.6 mg/dL (0.7-1.3); POTASSIUM 3.5 mmol/L (3.5-5.1)
[2017-06-10 08:43] VITALS: BP 162/68
[2017-06-10 11:32] VITALS: BP 148/59
[2017-06-10 15:57] VITALS: BP 137/60
[2017-06-10 20:31] VITALS: BP 146/55
[2017-06-11 04:00] VITALS: BP 139/49
[2017-06-11 06:06] LABS: CALCIUM 7.9 mg/dL (8.5-10.1); CREATININE 1.4 mg/dL (0.7-1.3); POTASSIUM 3.5 mmol/L (3.5-5.1)
[2017-06-11 08:03] VITALS: BP 138/63
[2017-06-11 12:10] VITALS: BP 135/59
[2017-06-11 18:23] VITALS: BP 149/78
[2017-06-11] MEDS ORDERED: FUROSEMIDE 40 M40 M1 PO (18:49)
[2017-06-11 19:10] VITALS: BP 135/59
== END 2017-06-11 19:20 | disposition home or self-care (01) | DRG 291 ==
LOC: ER 14:26 → EROBS 17:43 → 3W 17:43
PROVIDERS: Internal Medicine; Internal Medicine Pulmonary Disease; Nurse Practitioner Family
DX: I13.0 Hypertensive heart and chronic kidney disease with heart failure and stage 1 through stage 4 chronic kidney disease, or unspecified chronic kidney disease (principal); I50.33 Acute on chronic diastolic (congestive) heart failure; E43 Unspecified severe protein-calorie malnutrition; J18.9 Pneumonia, unspecified organism; D68.59 Other primary thrombophilia; I48.91 Unspecified atrial fibrillation; R09.02 Hypoxemia; I25.10 Atherosclerotic heart disease of native coronary artery without angina pectoris; D64.9 Anemia, unspecified; E87.70 Fluid overload, unspecified; G47.33 Obstructive sleep apnea (adult) (pediatric); D72.810 Lymphocytopenia; I48.0 Paroxysmal atrial fibrillation; K21.9 Gastro-esophageal reflux disease without esophagitis; N18.3 Chronic kidney disease, stage 3 (moderate); Z82.49 Family history of ischemic heart disease and other diseases of the circulatory system; Z68.23 Body mass index [BMI] 23.0-23.9, adult; Z95.5 Presence of coronary angioplasty implant and graft; Z88.1 Allergy status to other antibiotic agents; Z88.8 Allergy status to other drugs, medicaments and biological substances; Z79.899 Other long term (current) drug therapy; Z79.82 Long term (current) use of aspirin
CPT/HCPCS: 10879